=== PATIENT | male | born 1950 | race Caucasian/White ===

== ENCOUNTER 2024-01-01 04:33 | Inpatient (IN) | payer OTHER ==
[~2024-01-01] VITALS: Ht 180.3 cm; Wt 88.5 kg
[2024-01-01] VITALS (14 sets, daily range): BP systolic 93–127; BP diastolic 61–82; PULSE 62–78; RESP 14–37; TEMP 36.44736–36.696; O2SAT 97–100
[~2024-01-01 04:33] MED LIST: ATOR-2 PO; CARV25TA47 PO; CLOP75TA33 PO; LOSA25TA26 PO; SPIR25TA6 PO
[2024-01-01 05:14] LABS: BASOPHILS % 0.7 % (0.0-2.0); DIFFERENTIAL COMMENT 0; EOSINOPHILS % 2.9 % (0.0-5.0); HEMATOCRIT. 49.6 % (42.0-52.0); HEMOGLOBIN. 15.3 g/dL (14.0-18.0); LYMPHOCYTES % 41.7 % (20.0-50.0); MEAN CORPUSCULAR HEMOGLOBIN 29.8 pg (28.0-32.0); MEAN CORPUSCULAR HGB CONC 30.8 g/dL (31.0-37.0); MEAN CORPUSCULAR VOLUME 96.8 fL (80.0-94.0); MONOCYTES % 5.2 % (2.0-8.0); NEUTROPHILS % 49.5 % (40.0-76.0); PLATELET 192 x1000/uL (130-400); RED BLOOD CELL COUNT 5.12 mill/uL (4.7-6.1); WHITE BLOOD COUNT 11.7 x1000/uL (4.5-11.0)
[2024-01-01] MEDS: ONDANSETRON HCL 4MG/2ML INJ IV STA (05:17)
[2024-01-01] MEDS: FUROSEMIDE 40MG/4ML VIAL IV ONE (05:17)
[2024-01-01 05:37] LABS: INR 1.1; PROTHROMBIN TIME 12.1 sec (9.6-11.0)
[2024-01-01 06:05] LABS: POTASSIUM 3.8 mEq/L (3.5-5.1)
[2024-01-01 06:06] LABS: CALCIUM 9.3 mg/dL (8.7-10.4)
[2024-01-01 06:11] LABS: CREATININE 2.3 mg/dL (0.6-1.3)
[2024-01-01] MEDS ORDERED: IPRATROPIUM/ALBUTEROL 0.5-3(2.5)MG/3ML NEB HHN PRN (07:45)
[2024-01-01] MEDS: IPRATROPIUM/ALBUTEROL 0.5-3(2.5)MG/3ML NEB HHN SCH ×2 (08:03→23:00)
[2024-01-01] MEDS ORDERED: DEXTROSE 50% WATER 50ML SYRINGE IV PRN (08:30)
[2024-01-01] MEDS: BLOOD SUGAR DIAGNOSTIC STRIP TEST SCH (09:00)
[2024-01-01] MEDS: PANTOPRAZOLE SODIUM 40 MG/VIAL IV SCH (09:55)
[2024-01-01] MEDS: FUROSEMIDE 40MG/4ML VIAL IVP SCH (09:55)
[2024-01-01] MEDS: LOSARTAN 50 MG TABLET PO SCH (09:56)
[2024-01-01] MEDS: ENOXAPARIN 40MG/0.4ML SYR SUBCUT SCH (09:56)
[2024-01-01] MEDS: CEFTRIAXONE 1GM/50ML 50 ML IV SCH (09:56)
[2024-01-01 10:38] LABS: PHOSPHORUS 4.4 mg/dL (2.5-4.9)
[2024-01-01] MEDS: EMPAGLIFLOZIN 10MG TABLET PO SCH (10:45)
[2024-01-01] MEDS: ISOSORBIDE MONONITRATE 30MG TABLET SR 24HR PO SCH (10:45)
[2024-01-01 10:51] LABS: TROPONIN I HIGH SENSITIVITY 1673 ng/L (3.0-53)
[2024-01-01 11:23] LABS: BG BASE EXCESS -5.4 mmol/L (-2.0-3.0); BG CARBOXYHEMOGLOBIN 0.4 % (0.5-1.5); BG DEOXYHEMOGLOBIN 4.4 % (0.0-5.0); BG HCO3 ACT 19.2 mmol/L (21.0-28.0); BG METHEMOGLOBIN 0.3 % (0.5-1.5); BG OXYGEN SATURATION 95.6 % (94.0-98.0); BG OXYHEMOGLOBIN 94.9 % (94.0-98.0); BG PCO2 35.1 mmHg (35.0-48.0); BG PH 7.356 (7.350-7.450); BG PO2 76.3 mmHg (83.0-108.0); BG SAMPLE SITE RIGHT BRACHIAL; BG TOTAL HEMOGLOBIN 15.1 g/dL (13.5-17.5); BG VENT MODE NASAL CANNULA
[2024-01-01 11:26] LABS: CLARITY URINE CLEAR (CLEAR); COLOR URINE YELLOW (YELLOW); GLUCOSE URINE 2+ (NEGATIVE); KETONES URINE NEGATIVE (NEGATIVE); LEUKOCYTE ESTERASE URINE NEGATIVE (NEGATIVE); NITRITE URINE NEGATIVE (NEGATIVE); OCCULT BLOOD URINE 1+ (NEGATIVE); PROTEIN URINE NEGATIVE (NEGATIVE); SPECIFIC GRAVITY URINE 1.008 (1.005-1.030); UROBILINOGEN URINE 0.2 E.U./dL (0.2-1.0)
[2024-01-01 11:57] LABS: *AMPHETAMINES SCREEN URINE NEGATIVE (NEGATIVE)
[2024-01-01 11:58] LABS: *BARBITURATES SCREEN URINE NEGATIVE (NEGATIVE); *BENZODIAZEPINES SCREEN URINE NEGATIVE (NEGATIVE); *COCAINE SCREEN URINE NEGATIVE (NEGATIVE); BACTERIA URINE RARE; CANNABINOID URINE SCREEN NEGATIVE (NEGATIVE); ECSTASY MDMA SCREEN URINE NEGATIVE (NEGATIVE); METHADONE URINE SCREEN NEGATIVE (NEGATIVE); OPIATES URINE SCREEN NEGATIVE (NEGATIVE); PHENCYCLIDINE URINE SCREEN NEGATIVE (NEGATIVE); SQUAMOUS EPITHELIAL CELL URINE NONE SEEN /lpf (RARE/1+); WBC URINE 0-2 /hpf (0-2); YEAST URINE NONE SEEN
[2024-01-01] MEDS: INSULIN LISPRO 100 UNITS/ML SUBCUT SCH (13:09)
[2024-01-01 13:15] LABS: INR 1.1; PARTIAL THROMBOPLASTIN TIME 25.9 sec (23.4-31.0); PROTHROMBIN TIME 12.2 sec (9.6-11.0)
[2024-01-01] MEDS: HEPARIN 5000 UNITS/ML VIAL IV SCH (15:22)
[2024-01-01] MEDS: HEPARIN 25,000 UNITS PREMIX 250 ML IV PRN (15:42)
[2024-01-01 16:57] LABS: BASOPHILS % 0.4 % (0.0-2.0); EOSINOPHILS % 0.5 % (0.0-5.0); HEMATOCRIT. 43.9 % (42.0-52.0); HEMOGLOBIN. 13.9 g/dL (14.0-18.0); LYMPHOCYTES % 12.8 % (20.0-50.0); MEAN CORPUSCULAR HEMOGLOBIN 30.3 pg (28.0-32.0); MEAN CORPUSCULAR HGB CONC 31.6 g/dL (31.0-37.0); MEAN CORPUSCULAR VOLUME 95.9 fL (80.0-94.0); MONOCYTES % 6.4 % (2.0-8.0); NEUTROPHILS % 79.9 % (40.0-76.0); PLATELET 132 x1000/uL (130-400); RED BLOOD CELL COUNT 4.58 mill/uL (4.7-6.1); RED CELL DISTRIBUTION WIDTH 15.4 % (11.6-14.6); WHITE BLOOD COUNT 8.5 x1000/uL (4.5-11.0)
[2024-01-01 17:09] LABS: CREATINE KINASE MB FRACTION 15.7 ng/mL (0.5-3.6)
[2024-01-01] MEDS: ATORVASTATIN CALCIUM 40MG TABLET PO SCH (20:54)
[2024-01-01] MEDS ORDERED: HEPARIN 5000 UNITS/ML VIAL IV PRN ×2 (21:00)
[2024-01-01] MEDS: ACETAMINOPHEN 325MG TABLET PO PRN (21:06)
[2024-01-01] MEDS ORDERED: FURO40TA5 PO (21:50)
[2024-01-01] MEDS ORDERED: BISO5TAB13 PO (21:50)
[2024-01-01] MEDS ORDERED: ATOR-2 PO (21:51)
[2024-01-01] MEDS ORDERED: ISOS30TA91 PO (21:51)
[2024-01-01] MEDS ORDERED: EMPA25TA PO (21:51)
[2024-01-01 22:21] LABS: CLARITY URINE CLEAR (CLEAR); COLOR URINE YELLOW (YELLOW); GLUCOSE URINE 2+ (NEGATIVE); KETONES URINE NEGATIVE (NEGATIVE); LEUKOCYTE ESTERASE URINE NEGATIVE (NEGATIVE); NITRITE URINE NEGATIVE (NEGATIVE); OCCULT BLOOD URINE 1+ (NEGATIVE); PH URINE 5.5 (4.5-8.0); PROTEIN URINE NEGATIVE (NEGATIVE); SPECIFIC GRAVITY URINE 1.012 (1.005-1.030); UROBILINOGEN URINE 0.2 E.U./dL (0.2-1.0)
[2024-01-01 22:27] LABS: CREATINE KINASE MB FRACTION 15.4 ng/mL (0.5-3.6)
[2024-01-01 22:45] LABS: BACTERIA URINE TRACE; SQUAMOUS EPITHELIAL CELL URINE FEW /lpf (RARE/1+); WBC URINE 0-2 /hpf (0-2)
[2024-01-02] VITALS (17 sets, daily range): BP systolic 98–135; BP diastolic 56–87; PULSE 61–105; RESP 11–22; TEMP 36.61404–36.83628; O2SAT 94–100
[2024-01-02 06:26] LABS: CARBON DIOXIDE 26 mEq/L (21-32); CHLORIDE 112 mEq/L (98-107); SODIUM 146 mEq/L (136-145)
[2024-01-02 06:27] LABS: BASOPHILS % 0.6 % (0.0-2.0); CALCIUM 9.3 mg/dL (8.7-10.4); EOSINOPHILS % 2.9 % (0.0-5.0); HEMATOCRIT. 40.8 % (42.0-52.0); HEMOGLOBIN. 13.2 g/dL (14.0-18.0); MEAN CORPUSCULAR HEMOGLOBIN 30.7 pg (28.0-32.0); MEAN CORPUSCULAR HGB CONC 32.4 g/dL (31.0-37.0); MEAN CORPUSCULAR VOLUME 94.6 fL (80.0-94.0); MONOCYTES % 7.5 % (2.0-8.0); PLATELET 126 x1000/uL (130-400); RED BLOOD CELL COUNT 4.32 mill/uL (4.7-6.1); RED CELL DISTRIBUTION WIDTH 15.4 % (11.6-14.6); WHITE BLOOD COUNT 6.2 x1000/uL (4.5-11.0)
[2024-01-02 06:32] LABS: CREATININE 2.1 mg/dL (0.6-1.3); GLUCOSE 95 mg/dL (70-105); T4 FREE 0.83 ng/dL (0.89-1.76); THYROID STIMULATING HORMONE 0.64 uIU/mL (0.55-4.78)
[2024-01-02 06:33] LABS: LDL CHOLESTEROL 39 mg/dL (5-100); TRIGLYCERIDE 52 mg/dL (0-150); UREA NITROGEN BLOOD 48 mg/dL (9-23)
[2024-01-02 06:34] LABS: CHOLESTEROL 87 mg/dL (<200); HDL CHOLESTEROL 35 mg/dL (>55)
[2024-01-02 06:35] LABS: PHOSPHORUS 4.4 mg/dL (2.5-4.9)
[2024-01-02 07:30] LABS: TROPONIN I HIGH SENSITIVITY 1676 ng/L (3.0-53)
[2024-01-02 08:23] LABS: BG BASE EXCESS -2.1 mmol/L (-2.0-3.0); BG DEOXYHEMOGLOBIN 3.7 % (0.0-5.0); BG FRACTION INSPIRED OXYGEN 28; BG METHEMOGLOBIN 0.3 % (0.5-1.5); BG OXYGEN SATURATION 96.3 % (94.0-98.0); BG PCO2 35.9 mmHg (35.0-48.0); BG PH 7.406 (7.350-7.450); BG PO2 82.2 mmHg (83.0-108.0); BG SAMPLE SITE RIGHT BRACHIAL; BG VENT MODE NASAL CANNULA
[2024-01-02 09:20] LABS: ALANINE AMINOTRANSFERASE 15 IU/L (10-49); ALBUMIN 4.1 g/dL (3.2-4.8); ASPARTATE AMINOTRANSFERASE 30 IU/L (<34); BILIRUBIN DIRECT 0.3 mg/dL (<=3.0); BILIRUBIN TOTAL 0.8 mg/dL (0.1-1.0); PROTEIN TOTAL 6.6 g/dL (6.0-8.3)
[2024-01-02] MEDS: CEFTRIAXONE 1GM/50ML 50 ML IV SCH (10:47)
[2024-01-02] MEDS: ENOXAPARIN 40MG/0.4ML SYR SUBCUT SCH (14:50)
[2024-01-02 17:31] LABS: TROPONIN I HIGH SENSITIVITY 1082 ng/L (3.0-53)
[2024-01-02] MEDS: FUROSEMIDE 40MG/4ML VIAL IVP SCH (22:06)
[2024-01-03] VITALS: BP 120/82; PULSE 90; RESP 18; TEMP 36.55848; O2SAT 97
[2024-01-03] MEDS ORDERED: EMPAGLIFLOZIN 10MG TABLET PO SCH (09:00)
[2024-01-03] MEDS ORDERED: ENOXAPARIN 30MG/0.3ML SYR SUBCUT SCH (09:00)
== END 2024-01-03 00:32 | disposition short-term general hospital (02) | DRG 280 ==
LOC: ER 04:33 → 5EST 05:02 → EDBEDREQSVC 11:26
PROVIDERS: ADMIT Preventive Medicine Clinical Informatics; ATTEND Preventive Medicine Clinical Informatics
PROC: 5A09357 Assistance with Respiratory Ventilation, Less than 24 Consecutive Hours, Continuous Positive Airway Pressure (ICD-10-PCS; principal; 2024-01-01)
DX: I21.4 Non-ST elevation (NSTEMI) myocardial infarction (principal); I50.23 Acute on chronic systolic (congestive) heart failure; J96.01 Acute respiratory failure with hypoxia; I13.0 Hypertensive heart and chronic kidney disease with heart failure and stage 1 through stage 4 chronic kidney disease, or unspecified chronic kidney disease; N17.9 Acute kidney failure, unspecified; E78.5 Hyperlipidemia, unspecified; I25.10 Atherosclerotic heart disease of native coronary artery without angina pectoris; D72.829 Elevated white blood cell count, unspecified; E11.22 Type 2 diabetes mellitus with diabetic chronic kidney disease; N18.9 Chronic kidney disease, unspecified; Z79.84 Long term (current) use of oral hypoglycemic drugs; Z88.6 Allergy status to analgesic agent; Z95.5 Presence of coronary angioplasty implant and graft; Z95.810 Presence of automatic (implantable) cardiac defibrillator
CPT/HCPCS: 36415; 36600; 71045; 76770; 80048; 80061; 80076; 80305; 81003; 82010; 82040; 82375; 82550; 82553; 82805; 82962; 83036; 83605; 83735; 83880; 84100; 84145; 84439; 84443; 84484; 85025; 85379; 93005; 93970; 94640; 94660; 99285; J0696; J1644; J1650; J1940; J2405; J2470